=== PATIENT | female | born 1995 | race Caucasian/White ===

== ENCOUNTER 2019-01-20 23:03 | Emergency (ER) | payer BC | END 2019-01-20 23:32 | disposition home or self-care (01) | LOC: MADERS 23:03 | DX: S70.01XA Contusion of right hip, initial encounter (principal); F32.9 Major depressive disorder, single episode, unspecified; Z79.899 Other long term (current) drug therapy; V80.010A Animal-rider injured by fall from or being thrown from horse in noncollision accident, initial encounter | CPT/HCPCS: 99283 ==